=== PATIENT | male | born 1955 | race Caucasian/White ===

== ENCOUNTER → 2016-12-22 | Day surgery (SDC) | payer OTHER ==
[~2016-12-22] VITALS: Ht 188 cm; Wt 113.1 kg
[~2016-12-22] MED LIST: ASPIRIN EC325 MG PO; CALCIUM CITRAT1 EA14 PO; IBUPROFEN800 MG PO; NORVASC5 MG PO; PERCOCET 5/3251 TAB PO; XARELTO15 MG PO; XARELTO20 MG PO
== END | disposition home or self-care (01) ==
LOC: FAS 09:22
DX: I87.2 Venous insufficiency (chronic) (peripheral) (principal); I10 Essential (primary) hypertension; E03.9 Hypothyroidism, unspecified; Z79.899 Other long term (current) drug therapy; Z79.01 Long term (current) use of anticoagulants; Z86.711 Personal history of pulmonary embolism
CPT/HCPCS: 71010; 76000; C1788; J1644; J2405; J2704; J3010

== ENCOUNTER 2021-06-02 10:43 | Day surgery (SDCO) | payer OTHER ==
[~2021-06-02] VITALS: Ht 188 cm; Wt 103.0 kg
[~2021-06-02 10:43] MED LIST changes: +24HR ALLERGY REL5 MG PO; +ASCORBIC ACID500 MG PO; +CLEOCIN300 MG PO; +DEXAMETHASONE 2M2 MG PO; +FLOVENT HFA12 GM INH; +FOLGARD TABLET1 EACH PO; +LIPOSOMAL VIT C PO; +PROVENTIL HFA6.7 GM INH; +SYNTHROID50 MCG PO; +VALSARTAN-HCTZ1 EAC1 PO; +VIBRAMYCIN100 MG PO; +ZINC GLUCONATE100 MG PO
[2021-06-02] MEDS ORDERED: SYNTHROID50 MCG PO (16:52)
[2021-06-02] MEDS ORDERED: XARELTO20 MG PO (16:52)
[2021-06-02] MEDS ORDERED: ULTRAM50 MG PO (16:53)
[2021-06-02] MEDS ORDERED: DRIZALMA SPRINK30 MG PO (16:53)
[2021-06-02] MEDS ORDERED: DIOVAN160 MG PO (16:53)
[2021-06-02] MEDS ORDERED: COMPAZINE10 MG PO (16:54)
[2021-06-02] MEDS ORDERED: ALLOPURINOL300 MG PO (16:55)
[2021-06-02] MEDS ORDERED: ACYCLOVIR400 MG PO (16:55)
[2021-06-02] MEDS ORDERED: ATOVAQUONE750 MG/5 M PO (16:55)
[2021-06-02] MEDS ORDERED: FOLIC ACID1 MG PO (16:55)
[2021-06-02] MEDS ORDERED: VENCLEXTA10 MG PO (17:02)
[2021-06-02 19:02] LABS: RBC (FLUID) 0 RBC/uL; WBC (FLUID) 373 WBC/uL
[2021-06-02 19:05] LABS: CLARITY (FLUID) CLEAR; COLOR (FLUID) STRAW
[2021-06-03 06:47] LABS: HCT 23.9 % (42.0-52.0); HGB 8.2 g/dl (13.2-18.0); MCH 32.9 pg (25.0-31.0); MCHC 34.3 g/dL (32.0-36.0); RBC 2.49 M/uL (4.70-6.00); RDW 16.8 % (11.5-14.0)
[2021-06-03 06:51] LABS: WBC 1.6 K/uL (4.0-10.5)
[2021-06-03 07:25] LABS: BUN/CREAT RATIO (CALC) 15.3 RATIO; CREATININE 0.85 mg/dL (0.67-1.17); POTASSIUM 3.1 mmol/L (3.5-5.1)
--- NOTE | 2021-06-03 17:22 | NUR ---
06/03/[address] [facility].
== END 2021-06-03 14:18 | disposition other institution (70) ==
LOC: FIS 10:43 → FMS 15:19
PROVIDERS: ADMIT Hospitalist
DX: R83.8 Other abnormal findings in cerebrospinal fluid (principal); R41.82 Altered mental status, unspecified; C91.10 Chronic lymphocytic leukemia of B-cell type not having achieved remission; C85.90 Non-Hodgkin lymphoma, unspecified, unspecified site; I10 Essential (primary) hypertension; E03.9 Hypothyroidism, unspecified; Z96.643 Presence of artificial hip joint, bilateral; Z20.822 Contact with and (suspected) exposure to COVID-19; D51.9 Vitamin B12 deficiency anemia, unspecified
CPT/HCPCS: 36415; 70553; 80048; 82945; 84155; 87070; 87205; 87529; 89051; A9579; G0378; J0696; J1100; J1642; J2405; Q0164; U0002